=== PATIENT | female | born 1970 ===

== ENCOUNTER 2019-03-06 16:57 | Inpatient (IN) | payer SELFPAY ==
[2019-03-06 17:20] LABS: Base Excess-Venous -12.1 mmol/L (-2.0 to 3.0); Bicarbonate (HCO3v) 13.2 mmol/L (22.0-28.0); CO2 Tension (PvCO2) 29.5 mmHg (40.0-50.0); Calcium, Ionized 1.13 mmol/L (See Comments:); Chloride 104 mmol/L (98-107); Hemoglobin - Calc 18.8 g/dL (12.0-16.0); Potassium 8.1 mmol/L (3.5-5.1); Sodium 127 mmol/L (138-145); T. Carbon Dioxide 14.1 mmol/L (22.0-28.0); vO2 Saturation-calc 84.9 % (60.0-85.0)
[2019-03-06] MEDS ORDERED: Calcium Chloride 1 GM/10 ML Abboject SYRINGE ONE (17:25)
[2019-03-06 17:31] LABS: Hemoglobin 16.9 g/dL (12.0-16.0); Mean Corpuscular HGB CONC 33.3 g/dL (32.0-36.0); Mean Corpuscular Hemoglobin 28.6 pg (27.0-31.0); Mean Corpuscular Volume 86.1 fL (78.0-98.0); Platelet Count 271 thou/uL (130-400); RBC Distribution Width 13.1 % (11.5-14.5); White Blood Cell (WBC) Count 25.4 thou/uL (4.8-10.8)
[2019-03-06] MEDS ORDERED: Insulin Regular 300 UNITS/3 ML VIAL ONE (17:48)
[2019-03-06 17:52] LABS: Band 42 % (5-11); Lymphocytes 2 % (21-51); MDiff Complete? YES; Monocytes 7 % (0-10); Neutrophil 45 % (42-75); Platelet Morphology Comment Appears Adequate; Polychromasia SLIGHT = 2-3 cells (100X) (0-2/hpf); Reactive Lymphocytes 4 % (0-10); Reflex for Review?? YES
--- NOTE | 2019-03-06 17:52 | RAD ---
Exam: Chest one view HISTORY:Dyspnea Comparison: None FINDINGS: Cardiac silhouette: Normal Aorta: Unremarkable Pulmonary vessels: Normal Costophrenic angles: Clear LUNGS: Patchy interstitial and alveolar opacities predominantly lung bases. Pneumothorax: None Osseous abnormalities: None IMPRESSION: Bibasilar interstitial and alveolar opacities. Continued surveillance is recommended.
[2019-03-06 17:54] LABS: Bacteria/HPF None Seen HPF (None Seen); Bilirubin Negative (Negative); Blood, Urine 1+ (Negative); Clarity Clear (Clear); Glucose, Urine (Dipstick) Greater than 1000 mg/dL (Negative); Leukocyte Negative Leu/uL (Negative); Nitrite Negative (Negative); Protein, Urine (Dipstick) 100 mg/dL (Neg-Trace); RBC/HPF 0-3 HPF (0-3); Squamous Epithelial 0-3 HPF (0-3); Urobilinogen Normal mg/dL (Less than 2); WBC/HPF 0-3 HPF (0-3)
[2019-03-06] MEDS ORDERED: Insulin Regular 100 units/100 ml in NS IVPB SCH (18:00)
[2019-03-06 18:01] LABS: ALT (SGPT) 22 U/L (8-55); AST (SGOT) 15 U/L (5-34); Albumin 3.7 g/dL (3.5-5.0); Alkaline Phosphatase 148 U/L (40-110); Anion Gap 28 mmol/L (10-20); BUN (Urea Nitrogen) 35 mg/dL (7.0-18.7); Bilirubin, Total 0.4 mg/dL (0.2-1.2); Calc. Creatinine Clearance 0 mL/min (70-130); Calcium 10.5 mg/dL (7.8-10.44); Carbon Dioxide 11 mmol/L (22-29); Chloride 98 mmol/L (98-107); Estimated GFR-MDRD 39; Globulin 4.5 g/dL (2.4-3.5); Glucose 476 mg/dL (70-105); Lipase 113 U/L (8-78); Potassium 3.5 mmol/L (3.5-5.1); Protein, Total 8.2 g/dL (6.0-8.3); Sodium 133 mmol/L (136-145)
[2019-03-06] MEDS ORDERED: Azithromycin 500 MG VIAL ONE ×2 (18:06→18:07)
[2019-03-06] MEDS ORDERED: Aspirin Chewable 81 MG TAB ONE (18:06)
[2019-03-06] MEDS ORDERED: cefTRIAXone\\ROCEPHIN 2 GM VIAL ONE (18:06)
[2019-03-06 18:22] LABS: CKMB 6.8 ng/mL (0-6.6)
[2019-03-06] MEDS ORDERED: Rocuronium Bromide 50 MG/5 ML VIAL ONE (18:22)
[2019-03-06] MEDS ORDERED: Ondansetron PF 4 MG/2 ML Vial ONE (18:26)
[2019-03-06] MEDS ORDERED: fentaNYL Citrate/PF 2,000 MCG in Sodium Chloride 0.9% 60 ML IV SCH ×2 (18:41→23:45)
[2019-03-06 19:24] LABS: Actual Bicarbonate (HCO3a) 13.3 mEq/L (22-28); Analyzer IN Cardio ER; Base Excess (BEa) -14.8 mEq/L (-2.0 to +3.0); CO2 Tension 39.2 mmHg (35.0-45.0); Calcium, Ionized 1.38 mmol/L (1.12-1.30); Carboxyhemoglobin (COHb) 0.3 gm% (0.0-3.0); Hemoglobin (Hb) 14.8 g/dL (12.0-16.0); O2 Tension (PaO2) 154.5 mmHg (80.0-100.0); Potassium - ABG Lab 2.76 mmol/L (3.70-5.30)
--- NOTE | 2019-03-06 19:29 | RAD ---
CHEST ONE VIEW: 03/06/19 INDICATION: Intubation. COMPARISON: Prior exam dated 03/06/19 at 6:24 p.m. FINDINGS: ET tube tip is seen 3 cm above the level of the kami. Gastric catheter projects below the left jessica diaphragm and to the level of the gastric body. Cardiomegaly persists. Patchy perihilar opacities mor e prominent within the left lower lobe persists. No pleural effusion or pneumothorax is evident. No acute osseous abnormality is evident. IMPRESSION: Stable exam. POS: BH
--- NOTE | 2019-03-06 19:39 | RAD ---
CHEST ONE VIEW: 03/06/19 INDICATION: Intubation. COMPARISON: Prior examination performed at 5:22 p.m. FINDINGS: Patient has been intervally intubated. ET tube tip is seen 1.5 cm above the level of the kami. Alexander macie catheter projects below the left hemidiaphragm beyond the field of view. Patchy air space opacity seen within the right suprahilar region, right lower lobe and left infrahilar region suspicious for possible pneumonia. No pleural effusion or pneumothorax is evident. No acute osseous abnormality is e vident. IMPRESSION: Patchy bilateral air space opacity suspicious for possible pneumonia. POS: BH
[2019-03-06 19:40] LABS: pH, Arterial 7.15 (7.35-7.45)
[2019-03-06] MEDS ORDERED: Aspirin 300 MG Suppository ONE (20:01)
[2019-03-06 20:29] LABS: Anion Gap 18 mmol/L (10-20); BUN (Urea Nitrogen) 30 mg/dL (7.0-18.7); Calc. Creatinine Clearance 0 mL/min (70-130); Calcium 9.4 mg/dL (7.8-10.44); Carbon Dioxide 15 mmol/L (22-29); Chloride 111 mmol/L (98-107); Estimated GFR-MDRD 53; Glucose 289 mg/dL (70-105); Sodium 141 mmol/L (136-145)
[2019-03-06 20:37] LABS: Potassium 2.8 mmol/L (3.5-5.1)
[2019-03-06] MEDS ORDERED: Ondansetron ODT 4 MG TAB PO PRN (20:54)
[2019-03-06] MEDS ORDERED: Ondansetron PF 4 MG/2 ML Vial IVP PRN (20:54)
[2019-03-06 21:38] LABS: Troponin I 0.708 ng/mL (< 0.028)
[2019-03-06] MEDS ORDERED: Dextrose 5 %-0.45 % NaCl 1,000 ML IV PRN (22:04)
[2019-03-06] MEDS ORDERED: Dextrose 5% in Water 1,000 ML IV PRN (22:04)
[2019-03-06] MEDS ORDERED: Sodium Chloride 0.9% 1,000 ML IV PRN ×4 (22:04)
[2019-03-06] MEDS ORDERED: NS 0.9% w/ 20 MEQ KCL 1,000 ML/1,000 ML BAG IV PRN ×2 (22:04)
[2019-03-06] MEDS ORDERED: Dextrose 50% Abboject 50 ML SYRINGE SLOW IVP PRN (22:04)
[2019-03-06] MEDS ORDERED: HUMULIN R 100 UNITS in Sodium Chloride 0.9% 100 ML IVPB SCH (22:15)
[2019-03-06] MEDS ORDERED: ADD ELECTROLYTE REPLACEMENT SET TO PROFILE FS SCH (22:15)
[2019-03-06] MEDS ORDERED: Insulin Regular 300 UNITS/3 ML VIAL IVP SCH (22:15)
[2019-03-06] MEDS: D5 1/2 NS w/20 mEq KCL 1,000 ML IV PRN (22:48)
--- NOTE | 2019-03-06 22:54 | HP ---
PRIMARY CARE PHYSICIAN: None. CHIEF COMPLAINT: Weakness, fatigue times days. HISTORY OF PRESENT ILLNESS: A 48-year-old female who does not routinely see primary care physician and with no chronic medical comorbidities, who presented to urgent care clinic today for her second evaluation in five days for progressive complaints of fevers, cough, shortness of breath, and worsening malaise associated with weakness, and one day of disorientation prompting ER evaluation. Per account of the patient's spouse, son, daughter, and the ER physician, the patient began to complain of right hip pain on Tuesday and fevers complaints and productive cough and went to Urgent Care on , where she was diagnosed with the flu without any flu testing and prescribed oral medications and rescue inhaler and sent home. She continued to feel unwell on Tuesday and Tuesday had an episode of emesis and felt slightly better. On Tuesday, she slept the majority of the day with decreased oral intake and was restless throughout the night. On Tuesday, she had increasing fatigue and weakness and today she could not even get up out of bed and had fallen to the ground with increased shortness of breath, prompting family to take her to the urgent care. She was referred to the ER, where she was noted to be tachypneic. Her serum Accu-Chek was elevated and point of care glucose was over 306 with point of care potassium of 8.1. Serum chemistries suggested normal potassium but with hyperglycemia and anion gap metabolic acidosis, elevated beta hydroxybutyrate levels, normal lactic acid levels, and a serum troponin of 0.632 with urinalysis revealing proteinuria, glycosuria, ketonuria, and granular casts. One-view chest x-ray suggested bibasilar interstitial alveolar opacities. The patient was reported to have an initial oxygen saturation of 98% and with progression of hypoxia and increased labored breathing, she was intubated for airway protection in the emergency room. She received 2 L IV fluid bolus and assess one-third of liter after transiently hypotensive post intubation with no normotensive blood pressure readings. She was given Rocephin 1 g, IV regular insulin bolus and initiated on IV regular insulin drip and rectal aspirin 300 mg. At bedside, the patient is intubated and sedated. Family members corroborated an aforementioned history. They deny any focal neurological deficits noted in patient or any prior similar complaints. They deny any complaints of angina or dysuria or any other recent infections. REVIEW OF SYSTEMS: Unable to obtain as patient is intubated and sedated. PAST MEDICAL HISTORY: None. PAST SURGICAL HISTORY: Cholecystectomy. SOCIAL HISTORY: The patient is , lives at her home with her spouse and family. Denies tobacco or alcohol use. ALLERGIES: NONE DOCUMENTED. HOME MEDICATIONS: None. Recent medications will be reviewed as per admission medication reconciliation. FAMILY HISTORY: Notable for diabetes in family members. PHYSICAL EXAMINATION: VITAL SIGNS: T-max 100.0, pulse 110 to 130, sinus tachycardia, respirations 24 to 28, oxygen saturation reported 82% on room air but documented for 90% to 96%, and blood pressure ranges from 98/46 to 152/103. GENERAL APPEARANCE: This is a middle-aged female, who is intubated and sedated. HEENT: Normocephalic and atraumatic. Pupils are equally round and reactive. ET tube, NG tube noted. NECK: Supple. CARDIOVASCULAR: S1, S2. Tachycardia. No chest wall tenderness. LUNGS: Bilateral equal air entry on anterior auscultation with ET tube noted. No obvious wheezing appreciated. ABDOMEN: Soft, nontender, nondistended. Right upper abdominal scar noted. Normoactive bowel sounds. EXTREMITIES: No edema, cyanosis, or obvious deformities. SKIN: Warm to touch without rash, pallor, or abrasion. GENITOURINARY: Evaluation, indwelling Ching catheter with yellow-colored urine. LABORATORY VALUES: Sodium 133, potassium 3.5 (point of care potassium 8.1), chloride 98, bicarb 11, glucose 476, BUN/creatinine 35/1.43, GFR 39. Calcium 10.5, T-bilirubin 0.4, alkaline phosphatase 148, AST 15, and ALT 22. Lipase 113. Beta hydroxybutyrate 6.82. Troponin I 0.632. ABG: PH 7.15, pCO2 of 39, and PO2 154. Lactic acid 1.8. WBC 25.4, H and H 16.9/50.8, and platelets 271. Chest x-ray one view suggests bibasilar interstitial alveolar opacities. ASSESSMENT: 1. Acute hypoxic respiratory failure secondary to community-acquired pneumonia, possible flu, and diabetic ketoacidosis. The patient required emergent intubation in the ER for hypoxia and labored respirations in the ER. She is currently sedated. ER will consult on-call signal worker helper for ventilator management. Continue antibiotics, empiric Tamiflu, check flu screen for documentation, and continue surveillance chest x-ray monitoring, and we will treat diabetic ketoacidosis. 2. Diabetic ketoacidosis. The patient has no formal diagnosis of diabetes mellitus. Suspect triggered secondary to infection from clinical pneumonia, possible flu. We will need to exclude acute coronary syndrome in the setting of elevated troponin, although supply demand mismatch may be more likely. The patient has been bolused 3 L IV fluid, received IV insulin bolus, and is on IV insulin drip. Continue serial BMP to evaluate for anion gap closure. Check hemoglobin A1c. Monitor electrolyte derangements. 3. Acute metabolic encephalopathy, likely secondary to hypoxia, diabetic ketoacidosis, and dehydration. Difficult to assess as patient is now intubated and sedated. Denies any focal neurological deficits in patient prior to arrival. 4. Community-acquired pneumonia. Continue Rocephin and Zithromax. Start empiric oral Tamiflu and check influenza panel. Product Development Technician consulted. 5. Possible flu. The patient was given recent diagnosis at Urgent Care this past Tuesday without any formal testing reported. She is on some tablets which family cannot specify. We will start on oral Tamiflu, continue droplet precautions, and obtain influenza panel. 6. Elevated troponin of unspecified etiology. Rule out acute coronary syndrome. Trend serial cardiac biomarkers. May be secondary to supply demand mismatch from severe hypoxia and pneumonia. 7. Anion gap metabolic acidosis likely secondary to diabetic ketoacidosis. Lactic acid unremarkable. Continue volume expansion with IV fluid resuscitation and monitor serial BMP. 8. Dehydration. Continue IV fluid resuscitation. Likely secondary to diabetic ketoacidosis. 9. Hypercalcemia likely secondary to dehydration. Continue fluid resuscitation. 10. Gastrointestinal prophylaxis: Start Pepcid. 11. Deep vein thrombosis prophylaxis: Lovenox. 12. Check a.m. labs. 13. Disposition: Inpatient ICU admission. Job ID: [id number]
[2019-03-06] MEDS ORDERED: Propofol 1,000 MG/100 ML VIAL IV ONE (23:01)
[2019-03-06] MEDS ORDERED: Enoxaparin Sodium 60 MG/0.6 ML SYRINGE SC SCH (23:15)
[2019-03-06 23:31] LABS: Anion Gap 16 mmol/L (10-20); BUN (Urea Nitrogen) 26 mg/dL (7.0-18.7); Calc. Creatinine Clearance 67 mL/min (70-130); Calcium 9.2 mg/dL (7.8-10.44); Carbon Dioxide 15 mmol/L (22-29); Chloride 112 mmol/L (98-107); Estimated GFR-MDRD 62; Glucose 266 mg/dL (70-105); Sodium 140 mmol/L (136-145)
[2019-03-06 23:32] LABS: Potassium 2.7 mmol/L (3.5-5.1)
[2019-03-06] MEDS ORDERED: DISCONTINUE PREVIOUS NARCOTIC PAIN MEDICATIONS AND BENZODIAZEPINES FS SCH (23:45)
[2019-03-06] MEDS ORDERED: Lorazepam 2 MG/ML VIAL SLOW IVP PRN (23:45)
[2019-03-06] MEDS ORDERED: Propofol BOLUS 1,000 MG/100 ML VIAL IV PRN (23:45)
[2019-03-06] MEDS ORDERED: Fentanyl BOLUS 250 ML IVPB PRN (23:45)
[2019-03-06] MEDS ORDERED: Morphine 2 MG/ML SYRINGE SLOW IVP PRN (23:45)
[2019-03-06] MEDS ORDERED: Potassium Phosphate 15 MMOL in Sodium Chloride 0.9% 250 ML 250 ML IV PRN (23:47)
[2019-03-06] MEDS ORDERED: Magnesium Oxide 400 MG TAB PO PRN ×2 (23:47)
[2019-03-06] MEDS ORDERED: Potassium Chloride 40 MEQ in Premix Bag 1 BAG IVPB PRN (23:47)
[2019-03-06] MEDS ORDERED: Magnesium 2 GM/50 ML 2 GM in Premix Bag 1 BAG IVPB PRN (23:47)
[2019-03-06] MEDS ORDERED: Potassium Phosphate 9 MMOL in Sodium Chloride 0.9% 100 ML IVPB PRN (23:47)
[2019-03-06] MEDS ORDERED: Potassium Chloride 20 MEQ TAB PO PRN (23:47)
[2019-03-06] MEDS ORDERED: CCU ELECTROLYTE REPLACEMENT PROTOCOL FS PRN (23:47)
[2019-03-06] MEDS ORDERED: Potassium Phosphate 12 MMOL in Sodium Chloride 0.9% 250 ML 250 ML IV PRN (23:47)
[2019-03-06] MEDS ORDERED: PHOS-NAK 1 PKT PACK PO PRN ×2 (23:47)
[2019-03-06] MEDS: Propofol 1,000 MG/100 ML VIAL IV PRN (23:51)
[2019-03-07] MEDS: Potassium Chloride 40 MEQ in Sodium Chloride 0.9% 250 ML 250 ML IVPB PRN (00:47)
[2019-03-07 00:57] LABS: Critical Call Chem Troponin I RESULT DECREASING; Troponin I 0.533 ng/mL (< 0.028)
[2019-03-07] MEDS: D5 1/2 NS w/20 mEq KCL 1,000 ML IV PRN (03:49)
[2019-03-07 03:53] LABS: Anion Gap 13 mmol/L (10-20); BUN (Urea Nitrogen) 19 mg/dL (7.0-18.7); Calc. Creatinine Clearance 78 mL/min (70-130); Calcium 8.9 mg/dL (7.8-10.44); Carbon Dioxide 17 mmol/L (22-29); Chloride 117 mmol/L (98-107); Estimated GFR-MDRD 75; Glucose 251 mg/dL (70-105); Potassium 4.6 mmol/L (3.5-5.1); Sodium 142 mmol/L (136-145)
[2019-03-07] MEDS ORDERED: Lorazepam 2 MG/ML VIAL SLOW IVP PRN (04:22)
[2019-03-07] MEDS: Acetaminophen 325 MG TAB PO PRN ×2 (04:33→18:30)
[2019-03-07 06:11] LABS: Hemoglobin 13.1 g/dL (12.0-16.0); Mean Corpuscular HGB CONC 34.4 g/dL (32.0-36.0); Mean Corpuscular Hemoglobin 29.1 pg (27.0-31.0); Mean Corpuscular Volume 84.6 fL (78.0-98.0); Mean Platelet Volume 8.9 fL (7.4-10.4); Platelet Count 209 thou/uL (130-400); RBC Distribution Width 12.8 % (11.5-14.5); White Blood Cell (WBC) Count 12.6 thou/uL (4.8-10.8)
[2019-03-07] MEDS ORDERED: Sodium Chloride 0.9% 250 ML IV SCH (06:15)
[2019-03-07 06:47] LABS: Band 26 % (5-11); Lymphocytes 7 % (21-51); MDiff Complete? YES; Metamyelocyte 1 % (0-0); Monocytes 2 % (0-10); Myelocyte 3 % (0-0); Neutrophil 61 % (42-75); Platelet Morphology Comment Appears Adequate; RBC Morphology Normal
[2019-03-07 06:56] LABS: Lactic Acid 4.9 mmol/L (0.5-2.2)
[2019-03-07] MEDS ORDERED: D5 1/2 NS w/20 mEq KCL 1,000 ML IV PRN (07:03)
[2019-03-07 07:41] LABS: Actual Bicarbonate (HCO3a) 18.3 mEq/L (22-28); Base Excess (BEa) -5.5 mEq/L (-2.0 to +3.0); CO2 Tension 30.6 mmHg (35.0-45.0); Calcium, Ionized 1.23 mmol/L (1.12-1.30); Hemoglobin (Hb) 12.3 g/dL (12.0-16.0); O2 Tension (PaO2) 81.7 mmHg (80.0-100.0); Potassium - ABG Lab 3.06 mmol/L (3.70-5.30); pH, Arterial 7.39 (7.35-7.45)
[2019-03-07 07:42] LABS: Puncture Site RRA
[2019-03-07] MEDS ORDERED: Enoxaparin Sodium 40 MG/0.4 ML SYRINGE SC SCH (09:00)
[2019-03-07] MEDS ORDERED: FLU VACC QS2019-20(6MOS UP)/PF 60 MCG/0.5 ML SYRINGE IM ONE (09:00)
[2019-03-07 09:15] LABS: Magnesium 1.6 mg/dL (1.6-2.6)
[2019-03-07 09:19] LABS: Phosphorus Less than 1.0 mg/dL (2.3-4.7)
[2019-03-07] MEDS ORDERED: Pancrelipase DR 12000 1 CAP PER TUBE PRN (09:27)
[2019-03-07] MEDS ORDERED: Sodium Bicarbonate Tab 325 MG TAB PER TUBE PRN (09:28)
[2019-03-07] MEDS: Oseltamivir 75 MG CAP PO SCH ×2 (09:29→20:06)
[2019-03-07] MEDS: Enoxaparin Sodium 60 MG/0.6 ML SYRINGE SC SCH ×2 (09:33→20:20)
[2019-03-07] MEDS: Linezolid 600 MG in Premix Bag 1 BAG IVPB SCH ×2 (09:38→20:19)
--- NOTE | 2019-03-07 09:44 | CON ---
DATE OF CONSULTATION: HISTORY OF PRESENT ILLNESS: Sonja Barnard is a 48-year-old female whose history is obtained after talking to her daughter who was at the bedside. 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 They are from [facility]. They have been here for many years. They left a several day history of flu-like symptoms last week, cough, congestion, sore throat, went to Urgent Care. Flu shot was done, apparently they have given some Tamiflu. She then got worse over the last 24-48 hours of nausea, vomiting, confusion, shortness of breath, and cough. Nurses tell me she got bloody secretions. She came to the ER, seen by the ER physician as she was in severe distress blood pressure 98/46 in the ER, pulse 138, temperature 98, sats 90% on room air. She was in severe distress, was intubated. Tachypneic, tachycardic. X-ray shows a right-sided upper lung infiltrate. PAST MEDICAL HISTORY: Apparently, no history of diabetes or hypertension. PREVIOUS SURGERIES: Gallbladder many years ago. ALLERGIES: NONE. SOCIAL HISTORY: No alcohol or tobacco abuse. Daughter says she is pretty healthy. In the ER, she received aspirin, azithromycin, fentanyl, insulin 6 units/h, rocuronium, insulin 10 units. Fluid bolus. She is now in the ICU, intubated in the vent, sedated. PHYSICAL EXAMINATION: VITAL SIGNS: Blood pressure is low 90/53, pulse 120, respiratory rate 20, maximum temperature has been 101.4. CHEST: Extensive rhonchi and crackles. CARDIAC: Sinus tach. ABDOMEN: Soft without any masses. White count is 12,000, H and H are 13 and 38, platelet count is 209. PO2 is 81, pCO2 30, pH 7.39. Her lactic acid is 4.9, glucose 137. She is on 2 units of insulin R. Influenza A and B negative in the hospital. Chest x-ray shows bilateral airspace patchy, possibly pneumonia. Urine output has been adequate. Otherwise, as noted she is unresponsive. Chest is extensive rhonchi. Cardiac she has no edema. ASSESSMENT: 1. Uncontrolled diabetes, sepsis, new onset. 2. Bilateral aspiration pneumonia versus post flu pneumonia, rule out Staph shock. PLAN: 500 mL of Plasmanate has been given, insulin continue, we will start Lantus low-dose, aggressive Accu-Chek q.4, broad-spectrum antibiotics, sputum is being cultured, neb treatment is being ordered. Continue vent support for the time being, low-dose nutrition initiated. She is on DVT prophylaxis. This is a 45-minute critical time. Job ID: [id number]
[2019-03-07] MEDS: Insulin Glargine 10 UNITS in Pre-Filled Syringe 1 EACH SC SCH (09:59)
--- NOTE | 2019-03-07 10:41 | PDOC.HOSPP ---
- Subjective Encounter Date: 03/07/19 Encounter Time: 10:40 Subjective: The patient is intubated. Currentel yoff sedation but on fentanyl 25. Not arousable to noxious stimuli She was given 1.5L overnight, additional 1L bolus + 500 L bolus this morning. She was given [address] Leon as well and fluids increased to 150/hour. Per nurse, MAP was fluctuating to < 55 on multiple occasions, asked for prn order of levofed Per daughter patient was told she had the flu. She had shortness of breath and productive cough with phlegm. Tuesday she improved, Tuesday she got worst. Tuesday she was unable to get out of bed, talk and was confused. No previous history of diabetes in the past per daughter. Patient has no PCP. Unknown home meds - Objective Vital Signs & Weight: Vital Signs (12 hours) Temp Pulse Resp BP 03/07/19 10:21 95 93/47 L 03/07/19 10:00 24 H 03/07/19 08:00 25 H 03/07/19 07:16 107 H 79/46 L 03/07/19 07:00 99.4 F 03/07/19 06:00 101.4 F H 33 H 03/07/19 05:00 100.8 F H 03/07/19 04:00 100.6 F H 29 H 03/07/19 03:00 99.6 F 03/07/19 02:25 134 H 130/83 03/07/19 02:00 31 H 03/07/19 00:43 118 H 101/76 03/07/19 00:00 98.8 F 24 H 03/06/19 23:40 24 H Weight Admit Weight 131 lb 6.4 oz Weight 132 lb 0.91 oz Most Recent Monitor Data Heart Rate from ECG 94 NIBP 93/57 NIBP BP-Mean 69 Respiration from ECG 24 SpO2 98 I&O: 03/06/19 03/07/19 03/08/19 06:59 06:59 06:59 Intake Total 2211.7 11.5 Output Total 1015 150 Balance 1196.7 -138.5 Result Diagrams: 03/07/19 05:51 03/07/19 03:17 Additional Labs: Accuchecks 03/07/19 03/07/19 03/07/19 08:15 07:35 06:20 POC Glucose 137 H 140 H 174 H 03/07/19 03/07/19 03/07/19 05:13 04:23 03:21 POC Glucose 244 H 249 H 229 H 03/07/19 03/07/19 03/07/19 02:19 01:23 00:20 POC Glucose 251 H 290 H 295 H 03/06/19 03/06/19 03/06/19 23:15 22:25 20:28 POC Glucose 238 H 212 H 266 H 03/06/19 03/06/19 18:25 17:06 POC Glucose 306 H 426 H Hospitalist ROS - Medication Medications: Active Medications Generic Name Dose Route Start Last Admin Trade Name Freq PRN Reason Stop Dose Admin Acetaminophen 650 mg 03/06/19 20:54 03/07/19 04:33 Tylenol PO 650 mg Q4H PRN Administration Headache/Fever/Mild Pain (1-3) Albumin Human 25 gm 03/07/19 09:30 03/07/19 09:21 Albumin 5% IVPB 03/07/19 11:00 25 gm NOW ANAND Administration Enoxaparin Sodium 60 mg 03/07/19 09:00 03/07/19 09:33 Lovenox SC 60 mg 0900,2100 ANAND Administration Potassium Chloride 40 meq/ 270 mls @ 135 mls/hr 03/06/19 23:47 03/07/19 00:47 Sodium Chloride IVPB 270 mls ASDIR PRN Administration FOR SERUM K+ 2.5 - 3.5 Linezolid 600 mg/ Device 300 mls @ 150 mls/hr 03/07/19 09:00 03/07/19 09:38 IVPB 300 mls Q12HR ANAND Administration Insulin Glargine 10 units/ 0.1 mls @ 0 mls/hr 03/07/19 09:00 03/07/19 09:59 Miscellaneous Medication SC 0.1 mls QAM ANAND Administration Oseltamivir Phosphate 75 mg 03/07/19 09:00 03/07/19 09:29 Tamiflu PO 03/11/19 21:01 Not Given BID ANAND Propofol 1,000 mg 03/06/19 23:45 03/06/19 23:51 Diprivan IV 04/05/19 23:45 1,000 mg INF PRN Administration TO ACHIEVE GOAL RASS Protocol - Exam General Appearance: NAD General - other findings: intubated, not responsive to noxious stimuli Eye: PERRL, anicteric sclera ENT: normocephalic atraumatic, no oropharyngeal lesions Neck: no JVD Heart: RRR, no murmur, no gallops, no rubs Respiratory: rales Respiratory - other findings: bilateral Gastrointestinal: soft, non-tender, non-distended, normal bowel sounds Extremities: no cyanosis, no clubbing, no edema Hosp A/P - Plan Chest X ray 03/06: bibasilar opacities suspicious for pneumonia This is 48 year old female who presented with shortness of breath, cough, fever , confusion, unresponsiveness, admitted for DKA, s/p intubation #Acute hypoxic respiratory failure secondary to pneumonia s/p intubation #Severe sepsis secondary to pneumonia #Lactic acidosis - temp 101, heart rate 90, lactate 4.9, s/p 2L fluid boluses, with fluctuating MAP. On NS 150/hour, start levofed if MAP < 65 - WBC improving to 12, continue IV ceftriaxone and azithromycin - will repeat lactate - blood cultures negative, influenza negative. Check sputum culture #DKA - improving, off insulin drip - continue lantus 10 SC qam - monitor blood sugars q6 hours Diet: NPO DVT prophylaxis: lovenox Code status: full code
[2019-03-07] MEDS ORDERED: Sodium Phosphate 30 MMOL in Sodium Chloride 0.9% 250 ML 250 ML IVPB SCH (11:00)
[2019-03-07] MEDS ORDERED: Norepinephrine 8 MG/0.9% NS 250 ML IVPB SCH ×2 (11:00→11:03)
[2019-03-07 11:38] LABS: Lactic Acid 1.7 mmol/L (0.5-2.2)
[2019-03-07] MEDS: Sodium Chloride 0.9% 1,000 ML IV PRN ×2 (11:48→18:31)
[2019-03-07] MEDS: HumaLOG 300 UNITS/3 ML VIAL SC PRN ×3 (11:48→20:19)
[2019-03-07] MEDS: Propofol 1,000 MG/100 ML VIAL IV PRN (12:13)
[2019-03-07] MEDS ORDERED: cefTRIAXone\\ROCEPHIN 1 GM in Sodium Chloride 0.9% 100 ML IVPB SCH (17:00)
[2019-03-07] MEDS: Azithromycin 500 MG in Sodium Chloride 0.9% 250 ML 250 ML IVPB SCH (17:48)
[2019-03-07] MEDS: Famotidine/PF 20 mg/2ml Vial SLOW IVP SCH (20:20)
[2019-03-07] MEDS: Acetaminophen 650 MG/20.3 ML UDCUP PO PRN (21:48)
[2019-03-07] MEDS: Meropenem 2 GM in Sodium Chloride 0.9% 100 ML IVPB SCH (21:48)
[2019-03-08] MEDS: HumaLOG 300 UNITS/3 ML VIAL SC PRN ×5 (00:01→23:31)
[2019-03-08] MEDS: Acetaminophen 650 MG/20.3 ML UDCUP PO PRN ×2 (02:22→16:26)
[2019-03-08 05:22] LABS: Anion Gap 12 mmol/L (10-20); BUN (Urea Nitrogen) 6 mg/dL (7.0-18.7); Calc. Creatinine Clearance 112 mL/min (70-130); Calcium 7.4 mg/dL (7.8-10.44); Carbon Dioxide 21 mmol/L (22-29); Chloride 107 mmol/L (98-107); Estimated GFR-MDRD Greater than 90; Glucose 255 mg/dL (70-105); Potassium 1.8 mmol/L (3.5-5.1); Sodium 138 mmol/L (136-145)
[2019-03-08] MEDS: Meropenem 2 GM in Sodium Chloride 0.9% 100 ML IVPB SCH ×3 (05:37→21:29)
[2019-03-08 05:50] LABS: Band 47 % (5-11); Eosinophils 1 % (0-10); Hemoglobin 11.3 g/dL (12.0-16.0); Lymphocytes 7 % (21-51); MDiff Complete? YES; Mean Corpuscular HGB CONC 32.6 g/dL (32.0-36.0); Mean Corpuscular Hemoglobin 27.8 pg (27.0-31.0); Mean Corpuscular Volume 85.3 fL (78.0-98.0); Metamyelocyte 1 % (0-0); Monocytes 1 % (0-10); Neutrophil 43 % (42-75); Platelet Count 217 thou/uL (130-400); RBC Distribution Width 12.9 % (11.5-14.5); Red Blood Cell (RBC) Count 4.08 mill/uL (4.20-5.40); White Blood Cell (WBC) Count 15.4 thou/uL (4.8-10.8)
[2019-03-08] MEDS: Potassium Chloride 20 MEQ TAB PO SCH ×2 (06:00→09:34)
[2019-03-08] MEDS: Potassium Chloride 20 MEQ in Premix Bag 1 BAG IVPB SCH ×2 (06:12→10:45)
[2019-03-08 06:49] LABS: Actual Bicarbonate (HCO3a) 21.7 mEq/L (22-28); Base Excess (BEa) -0.1 mEq/L (-2.0 to +3.0); CO2 Tension 27.3 mmHg (35.0-45.0); Calcium, Ionized 1.08 mmol/L (1.12-1.30); Hemoglobin (Hb) 11.8 g/dL (12.0-16.0); O2 Tension (PaO2) 118.5 mmHg (80.0-100.0); Potassium - ABG Lab 1.96 mmol/L (3.70-5.30); pH, Arterial 7.52 (7.35-7.45)
[2019-03-08 06:51] LABS: ALV-art Gradient 132.575 (0-20); Puncture Site RRA
--- NOTE | 2019-03-08 08:01 | RAD ---
PORTABLE CHEST: HISTORY: On ventilator with CCU followup. COMPARISON: 03/06/2019. FINDINGS/IMPRESSION: ET tube and NG Tube remain in place. Artifact overlies the right mid lung and degrades evaluation. There is hazy infiltrate or atelectasis in the left lung base which appears unchanged from 03/06/2019. No acute interval change. POS: C
[2019-03-08] MEDS: Famotidine/PF 20 mg/2ml Vial SLOW IVP SCH ×2 (09:31→20:20)
[2019-03-08] MEDS: Enoxaparin Sodium 60 MG/0.6 ML SYRINGE SC SCH ×2 (09:31→20:20)
[2019-03-08] MEDS: Linezolid 600 MG in Premix Bag 1 BAG IVPB SCH ×2 (09:32→20:21)
[2019-03-08] MEDS: Insulin Glargine 10 UNITS in Pre-Filled Syringe 1 EACH SC SCH (09:32)
[2019-03-08] MEDS: NS 0.9% w/ 40 MEQ KCL 1,000 ML IV SCH ×2 (09:34→21:52)
[2019-03-08 10:27] LABS: Potassium 2.1 mmol/L (3.5-5.1)
--- NOTE | 2019-03-08 10:28 | PRG ---
DATE OF SERVICE: 03/08/2019 SUBJECTIVE: This morning, she is sedated, but responsive. OBJECTIVE: VITAL SIGNS: Temperature 97 saturations 100%, respirations 22. CHEST: Bilateral rhonchi and crackles. CARDIAC: Normal S1 and S2. No gallops. ABDOMEN: No masses. LABORATORY DATA: White count 15,000, hemoglobin and hematocrit are 11 and 34, platelet count 217, 43 segs, 47 bands. PO2 is 118, pCO2 27, pH 7.52. Glucoses 214, potassium 1.8, bicarb is 21. X-ray shows bilateral pneumonia. Sputum shows maybe Staph. IMPRESSION: 1. Bilateral bronchopneumonia, possibly Staph. Recent flu, though her influenza titer was negative. 2. Diabetes. PLAN: Continue hydration, hopefully wean and extubate. Continue low-dose insulin. Continue Acc-Cheks. Do not stop antibiotics, Zyvox and Zithromax. Primary care switched over to meropenem and it is unclear why this was done. We will follow. One-half hour of critical time. Job ID: [id number]
[2019-03-08 16:47] LABS: Magnesium 1.8 mg/dL (1.6-2.6)
[2019-03-08 16:51] LABS: Potassium 2.6 mmol/L (3.5-5.1)
[2019-03-08] MEDS: Potassium Chloride 40 MEQ in Sodium Chloride 0.9% 250 ML 250 ML IVPB PRN (17:20)
[2019-03-08] MEDS: Azithromycin 500 MG in Sodium Chloride 0.9% 250 ML 250 ML IVPB SCH (17:29)
--- NOTE | 2019-03-08 18:05 | PDOC.HOSPP ---
- Subjective Encounter Date: 03/08/19 Encounter Time: 11:00 Subjective: The patient is extubated today. She reports some mild shortness of breath, no chest pain. Per she is a little confused. No abdominal pain, nausea Patient spiked fever overnight. Ceftriaxone was switched to meropenem. Linezolid and azithromycin continued - Objective Vital Signs & Weight: Vital Signs (12 hours) Temp Pulse Pulse Resp BP Pulse Ox Pulse Ox 03/08/19 16:00 100.1 F H 03/08/19 13:03 95 24 H 99 03/08/19 12:00 99.0 F 100 03/08/19 11:13 94 122/66 99 03/08/19 09:45 94 19 100 03/08/19 08:00 98.8 F 20 100 03/08/19 06:51 102 H Weight Admit Weight 131 lb 6.4 oz Weight 136 lb 10.986 oz Most Recent Monitor Data Heart Rate from ECG 103 NIBP 116/56 NIBP BP-Mean 76 Respiration from ECG 25 SpO2 99 I&O: 03/07/19 03/08/19 03/09/19 06:59 06:59 06:59 Intake Total 2211.7 6750.3 2516.6 Output Total 1015 4050 2115 Balance 1196.7 2700.3 401.6 Result Diagrams: 03/08/19 04:05 03/08/19 16:20 Additional Labs: Accuchecks 03/08/19 03/08/19 03/08/19 16:23 12:19 08:08 POC Glucose 108 206 H 214 H 03/08/19 03/08/19 03/07/19 04:09 00:01 20:21 POC Glucose 252 H 234 H 197 H Hospitalist ROS - Review of Systems Constitutional: denies: fever, chills Respiratory: reports: shortness of breath. denies: cough, dry - Medication Medications: Active Medications Generic Name Dose Route Start Last Admin Trade Name Freq PRN Reason Stop Dose Admin Acetaminophen 650 mg 03/07/19 19:01 03/08/19 16:26 Tylenol Elixir PO 650 mg Q4H PRN Administration Headache/Fever/Mild Pain (1-3) Albuterol/Ipratropium 3 ml 03/07/19 13:00 03/08/19 13:03 Duoneb NEB 3 ml [id number] ANAND Administration Enoxaparin Sodium 60 mg 03/07/19 09:00 03/08/19 09:31 Lovenox SC 60 mg 0900,2100 ANAND Administration Famotidine 20 mg 03/07/19 21:00 03/08/19 09:31 Pepcid SLOW IVP 20 mg BID ANAND Administration Azithromycin 500 mg/ Sodium 250 mls @ 250 mls/hr 03/07/19 18:00 03/08/19 17: 29 Chloride IVPB 250 mls 1800 ANAND Administration Potassium Chloride 40 meq/ 270 mls @ 135 mls/hr 03/06/19 23:47 03/08/19 17:20 Sodium Chloride IVPB 270 mls ASDIR PRN Administration FOR SERUM K+ 2.5 - 3.5 Magnesium Sulfate 1 gm/ Sodium 102 mls @ 102 mls/hr 03/06/19 23:47 03/08/19 17:18 Chloride IV 102 mls PRN PRN Administration MAG LEVEL 1.4 - 2.0 Magnesium Sulfate 2 gm/ Device 50 mls @ 50 mls/hr 03/06/19 23:47 03/08/19 12: 24 IVPB 50 mls ASDIR PRN Administration MAGNESIUM < 1.4 Linezolid 600 mg/ Device 300 mls @ 150 mls/hr 03/07/19 09:00 03/08/19 09:32 IVPB 300 mls Q12HR ANAND Administration Insulin Glargine 10 units/ 0.1 mls @ 0 mls/hr 03/07/19 09:00 03/08/19 09:32 Miscellaneous Medication SC 0.1 mls QAM ANAND Administration Meropenem 2 gm/ Sodium 100 mls @ 100 mls/hr 03/07/19 22:00 03/08/19 14:05 Chloride IVPB 100 mls Q8HR ANAND Administration Potassium Chloride/Sodium Chloride 1,000 mls @ 100 mls/hr 03/08/19 09:00 09:34 Ns 0.9% W/ 40 Meq Kcl IV 1,000 mls .Q10H ANAND Administration Insulin Human Lispro 0 units 03/07/19 09:26 03/08/19 12:24 Humalog SC 6 units .AGGRESSIVE SLIDING PRN Administration AGGRESSIVE SLIDING SCALE Protocol Lorazepam 2 mg 03/06/19 23:45 03/07/19 14:03 Ativan SLOW IVP 04/05/19 23:45 2 mg Q1H PRN Administration Breakthrough agitation Propofol 1,000 mg 03/06/19 23:45 03/07/19 12:13 Diprivan IV 04/05/19 23:45 1,000 mg INF PRN Administration TO ACHIEVE GOAL RASS Protocol - Exam General Appearance: NAD, awake alert Eye: PERRL, anicteric sclera ENT: normocephalic atraumatic, no oropharyngeal lesions Neck: supple, symmetric, no JVD, no thyromegaly Heart: RRR, no murmur, no gallops, no rubs Respiratory - other findings: mild crackles at bases Gastrointestinal: soft, non-tender, non-distended Extremities: no cyanosis, no clubbing, no edema Hosp A/P - Plan Chest X ray 03/06: bibasilar opacities suspicious for pneumonia This is 48 year old female who presented with shortness of breath, cough, fever , confusion, unresponsiveness, admitted for DKA, s/p intubation #Acute hypoxic respiratory failure secondary to pneumonia s/p intubation #Severe sepsis secondary to pneumonia #Lactic acidosis - temp 101, heart rate 90, lactate 4.9, s/p 2L fluid boluses, with fluctuating MAP. Required levofed - blood culture negative, respiratory culture growing staph aureus. Flu negative - on IV linezolid, meropenem and azithromycin which we will continue for now - lactic acidosis resolved #DKA - off the drip - on full liquid diet - on lantus 10 units SC qam #Hypokalemia - potassium 2.6. - continue electrolyte replacement. Repeat BMP in evening #Anemia - hemoglobin 11 - check B12/folate in am Diet: NPO DVT prophylaxis: lovenox Code status: full code
[2019-03-08 23:50] LABS: Potassium 3.1 mmol/L (3.5-5.1)
[2019-03-09] MEDS: Potassium Chloride 40 MEQ in Sodium Chloride 0.9% 250 ML 250 ML IVPB PRN (02:07)
[2019-03-09 04:39] LABS: Anion Gap 10 mmol/L (10-20); BUN (Urea Nitrogen) 4 mg/dL (7.0-18.7); Calc. Creatinine Clearance 134 mL/min (70-130); Calcium 7.6 mg/dL (7.8-10.44); Carbon Dioxide 29 mmol/L (22-29); Chloride 107 mmol/L (98-107); Estimated GFR-MDRD Greater than 90; Glucose 113 mg/dL (70-105); Potassium 3.5 mmol/L (3.5-5.1); Sodium 142 mmol/L (136-145)
[2019-03-09 04:55] LABS: Band 19 % (5-11); Hemoglobin 11.5 g/dL (12.0-16.0); Hypochromia SLIGHT = 6-15 cells (100X) (0-5/hpf); Lymphocytes 3 % (21-51); MDiff Complete? YES; Mean Corpuscular HGB CONC 33.8 g/dL (32.0-36.0); Mean Corpuscular Hemoglobin 28.6 pg (27.0-31.0); Mean Corpuscular Volume 84.7 fL (78.0-98.0); Mean Platelet Volume 9.2 fL (7.4-10.4); Monocytes 1 % (0-10); Neutrophil 77 % (42-75); Nucleated RBC 2 % (0); Platelet Count 273 thou/uL (130-400); Platelet Morphology Comment Appears Adequate; White Blood Cell (WBC) Count 24.3 thou/uL (4.8-10.8)
[2019-03-09] MEDS: Meropenem 2 GM in Sodium Chloride 0.9% 100 ML IVPB SCH (06:10)
[2019-03-09 08:08] LABS: Phosphorus Less than 1.0 mg/dL (2.3-4.7)
--- NOTE | 2019-03-09 08:16 | RAD ---
XR Chest 1 View Portable History: Ventilated patient Comparison: Radiograph prior day Findings: Patient has been expected in the enteric tube has been removed. Airspace opacities are rela tively similar. No pneumothorax. Cardiac silhouette and mediastinal contours are similar. Impression: Interval extubation and removal of the enteric tube without complication.
--- NOTE | 2019-03-09 08:53 | PRG ---
DATE OF SERVICE: 03/09/2019 SUBJECTIVE: This morning, she is awake, alert, responsive, and weak. X-ray shows a dense right upper lung pneumonia and small bilateral infiltrates. Sputum is growing Staph. Awaiting final identification. I's and O's have been good. Respirations are still elevated at 21. OBJECTIVE: VITAL SIGNS: Saturations are 99% on room air, blood pressure _22\76, maximum temperature 99.2. CHEST: Bilateral rhonchi and crackles. CARDIAC: Normal S1 and S2. No gallops. ABDOMEN: No masses. LABORATORY DATA: Echocardiogram done shows EF is 55% to 60% normal. IMPRESSION: 1. Staph pneumonia, status post viral syndrome. 2. Diabetes. 3. Electrolyte imbalance. 4. Continue aggressive PT, supportive care. Low-dose insulin. Continue observation in the ICU for the 24 hours. One-half hour of critical time. Job ID: [id number] [id number]
[2019-03-09] MEDS: NS 0.9% w/ 40 MEQ KCL 1,000 ML IV SCH ×2 (09:08→09:09)
[2019-03-09] MEDS: Cefepime 2 GM in Sodium Chloride 0.9% 100 ML IVPB SCH ×2 (09:23→21:41)
[2019-03-09] MEDS: Famotidine 20 MG TAB PER TUBE SCH ×2 (09:24→21:32)
[2019-03-09] MEDS: Enoxaparin Sodium 60 MG/0.6 ML SYRINGE SC SCH ×2 (09:24→21:34)
[2019-03-09] MEDS: Linezolid 600 MG in Premix Bag 1 BAG IVPB SCH ×2 (09:24→21:34)
[2019-03-09] MEDS: Insulin Glargine 10 UNITS in Pre-Filled Syringe 1 EACH SC SCH (09:24)
[2019-03-09] MEDS ORDERED: K-Phos Neutral 250 MG TAB PO SCH (10:30)
[2019-03-09] MEDS: HumaLOG 300 UNITS/3 ML VIAL SC PRN (12:30)
--- NOTE | 2019-03-09 16:32 | PDOC.HOSPP ---
- Subjective Encounter Date: 03/09/19 Encounter Time: 16:30 Subjective: The patient is doing better. No significant cough. Shortness of breath has improved. The patient doesn't talk much, this is normal per family. She is more awake today, sitting in the chair - Objective Vital Signs & Weight: Vital Signs (12 hours) Temp Pulse Pulse Pulse Resp BP BP 03/09/19 14:48 96 93 158/100 H 133/71 03/09/19 13:09 95 16 03/09/19 12:00 99.4 F 03/09/19 08:00 99.4 F 03/09/19 06:57 92 21 H Pulse Ox Pulse Ox Pulse Ox 03/09/19 14:48 100 97 03/09/19 13:09 100 03/09/19 12:00 03/09/19 08:00 96 03/09/19 06:57 99 Weight Admit Weight 131 lb 6.4 oz Weight 136 lb 3.931 oz Most Recent Monitor Data Heart Rate from ECG 93 NIBP 157/101 NIBP BP-Mean 119 Respiration from ECG 15 SpO2 100 I&O: 03/08/19 03/09/19 03/10/19 06:59 06:59 06:59 Intake Total 6750.3 4765.6 517 Output Total 4050 4005 935 Balance 2700.3 760.6 -418 Result Diagrams: 03/09/19 03:30 03/09/19 03:30 Additional Labs: Accuchecks 03/09/19 03/09/19 03/09/19 16:19 12:09 08:27 POC Glucose 120 H 168 H 109 03/09/19 03/08/19 03/08/19 03:49 23:30 19:33 POC Glucose 120 H 163 H 130 H Hospitalist ROS - Review of Systems Constitutional: denies: fever, chills - Medication Medications: Active Medications Generic Name Dose Route Start Last Admin Trade Name Freq PRN Reason Stop Dose Admin Acetaminophen 650 mg 03/07/19 19:01 03/08/19 16:26 Tylenol Elixir PO 650 mg Q4H PRN Administration Headache/Fever/Mild Pain (1-3) Albuterol/Ipratropium 3 ml 03/07/19 13:00 03/09/19 13:09 Duoneb NEB 3 ml [id number] ANAND Administration Enoxaparin Sodium 60 mg 03/07/19 09:00 03/09/19 09:24 Lovenox SC 60 mg 0900,2100 ANAND Administration Famotidine 20 mg 03/09/19 09:00 03/09/19 09:24 Pepcid PER TUBE 20 mg BID ANAND Administration Potassium Chloride 40 meq/ 270 mls @ 135 mls/hr 03/06/19 23:47 03/09/19 02:07 Sodium Chloride IVPB 270 mls ASDIR PRN Administration FOR SERUM K+ 2.5 - 3.5 Magnesium Sulfate 1 gm/ Sodium 102 mls @ 102 mls/hr 03/06/19 23:47 03/09/19 09:09 Chloride IV 102 mls PRN PRN Administration MAG LEVEL 1.4 - 2.0 Magnesium Sulfate 2 gm/ Device 50 mls @ 50 mls/hr 03/06/19 23:47 03/08/19 12: 24 IVPB 50 mls ASDIR PRN Administration MAGNESIUM < 1.4 Linezolid 600 mg/ Device 300 mls @ 150 mls/hr 03/07/19 09:00 03/09/19 09:24 IVPB 300 mls Q12HR ANAND Administration Insulin Glargine 10 units/ 0.1 mls @ 0 mls/hr 03/07/19 09:00 03/09/19 09:24 Miscellaneous Medication SC 0.1 mls QAM ANAND Administration Potassium Chloride/Sodium Chloride 1,000 mls @ 50 mls/hr 03/09/19 08:37 03/09 09:08 Ns 0.9% W/ 40 Meq Kcl IV 1,000 mls .Q20H ANAND Administration Cefepime HCl 2 gm/ Sodium 100 mls @ 200 mls/hr 03/09/19 09:00 03/09/19 09:23 Chloride IVPB 100 mls Q12HR ANAND Administration Insulin Human Lispro 0 units 03/07/19 09:26 03/09/19 12:30 Humalog SC 3 units .AGGRESSIVE SLIDING PRN Administration AGGRESSIVE SLIDING SCALE Protocol - Exam General Appearance: NAD, awake alert General - other findings: slightly drowsy ENT: normocephalic atraumatic, no oropharyngeal lesions Neck: supple, symmetric, no JVD, no thyromegaly Heart: RRR, no murmur, no gallops, no rubs Respiratory: no rales, no ronchi Respiratory - other findings: slightly diminished breath sounds at the bases Gastrointestinal: soft, non-tender, non-distended, normal bowel sounds Extremities: no cyanosis, no clubbing, no edema Hosp A/P - Plan Chest X ray 03/06: bibasilar opacities suspicious for pneumonia This is 48 year old female who presented with shortness of breath, cough, fever , confusion, unresponsiveness, admitted for DKA, s/p intubation #Acute hypoxic respiratory failure secondary to pneumonia s/p intubation #Severe sepsis secondary to pneumonia #Lactic acidosis - temp 101, heart rate 90, lactate 4.9, s/p 2L fluid boluses, with fluctuating MAP. Required levofed - blood culture negative, respiratory culture growing staph aureus. Flu negative - on IV linezolid, meropenem and azithromycin however WBC went up to 24 today, so switched meropenem to cefepime per pulmonray - lactic acidosis resolved #DKA - resolved - on lantus 10 units SC qam #Hypokalemia - resolved - continue electrolyte replacement. Repeat BMP in evening #Anemia - hemoglobin 11 - check B12/folate in am Diet: NPO DVT prophylaxis: lovenox Code status: full code
[2019-03-09] MEDS: K-Phos Neutral 250 MG TAB PO SCH (17:17)
--- NOTE | 2019-03-09 18:38 | CON ---
DATE OF CONSULTATION: 03/09/2019 REASON FOR CONSULTATION: Elevated troponin. HISTORY OF PRESENT ILLNESS: Ms. Barnard is a 48-year-old woman, who recently presented with pneumonia. She has no previous history of underlying coronary artery disease. She has no history of chest pain, pressure, dizziness, lightheadedness, or syncope. She does have shortness of breath and was diagnosed with pneumonia per Dr. Ean Leon. Her peak troponin was 0.5. Recent echo suggested LVEF of 55% to 60% with mild MR. PAST MEDICAL HISTORY: None. PAST SURGICAL HISTORY: Cholecystectomy. ALLERGIES: NONE. MEDICATIONS: None. REVIEW OF SYSTEMS: A 10-point review of systems is reviewed and as above, otherwise negative. PHYSICAL EXAMINATION: GENERAL: The patient is a pleasant 48-year-old who is in no acute distress. The patient appears their stated age. VITAL SIGNS: Blood pressure 141/79, pulse 81, temperature afebrile. NEUROLOGIC: The patient is alert and oriented x3 with no focal neurologic deficits. HEENT: Sclerae without icterus. Mouth has moist mucous membranes with normal pallor. NECK: No JVD. Carotid upstroke brisk. No bruits bilaterally. LUNGS: Clear to auscultation with unlabored respirations. BACK: No scoliosis or kyphosis. CARDIAC: Regular rate and rhythm with normal S1 and S2. No S3 or S4 noted. No significant rubs, murmurs, thrills, or gallops noted throughout the precordium. PMI is not displaced. There is no parasternal heave. ABDOMEN: Soft, nontender, nondistended. No peritoneal signs present. No hepatosplenomegaly. No abnormal striae. EXTREMITIES: 2+ femoral and 2+ dorsalis pedis pulses. No cyanosis, clubbing, or edema. SKIN: No gross abnormalities. PERTINENT LABORATORY DATA: Hemoglobin 11.5. Creatinine 0.4, potassium 3.5. Peak troponin 0.7. IMPRESSION: 1. Pneumonia. 2. Elevated troponin. RECOMMENDATIONS: Increased troponin likely secondary to type 2 VA from recent pneumonia. Conservative therapy recommended. Would add low-dose beta-jose guadalupe therapy in addition to aspirin and statin. Given normal LVEF, continue current course. Otherwise, I have no further recommendations. Any further CV changes occur, please do not hesitate to re-consult. Job ID: [id number]
[2019-03-09] MEDS: Guaifenesin DM 100-10/5 ML UDCUP PO PRN (23:35)
[2019-03-10] MEDS: HumaLOG 300 UNITS/3 ML VIAL SC PRN ×2 (00:12→14:11)
[2019-03-10] MEDS: Guaifenesin DM 100-10/5 ML UDCUP PO PRN ×3 (04:23→18:43)
[2019-03-10] MEDS: NS 0.9% w/ 40 MEQ KCL 1,000 ML IV SCH (04:27)
[2019-03-10 05:10] LABS: Anion Gap 11 mmol/L (10-20); BUN (Urea Nitrogen) 6 mg/dL (7.0-18.7); Calc. Creatinine Clearance 139 mL/min (70-130); Calcium 7.7 mg/dL (7.8-10.44); Carbon Dioxide 26 mmol/L (22-29); Chloride 106 mmol/L (98-107); Estimated GFR-MDRD Greater than 90; Glucose 95 mg/dL (70-105); Potassium 3.3 mmol/L (3.5-5.1); Sodium 140 mmol/L (136-145)
[2019-03-10 05:16] LABS: Phosphorus 1.9 mg/dL (2.3-4.7)
[2019-03-10 05:43] LABS: Band 15 % (5-11); Eosinophils 2 % (0-10); Hemoglobin 11.1 g/dL (12.0-16.0); Lymphocytes 11 % (21-51); MDiff Complete? YES; Mean Corpuscular HGB CONC 34.8 g/dL (32.0-36.0); Mean Corpuscular Volume 86.2 fL (78.0-98.0); Mean Platelet Volume 8.9 fL (7.4-10.4); Metamyelocyte 1 % (0-0); Monocytes 7 % (0-10); Neutrophil 64 % (42-75); Nucleated RBC 1 % (0); Platelet Count 336 thou/uL (130-400); Platelet Morphology Comment Appears Adequate; RBC Distribution Width 13.1 % (11.5-14.5); RBC Morphology Normal; Target Cells SLIGHT = 2-5 cells (100X) (0-1/hpf); White Blood Cell (WBC) Count 16.1 thou/uL (4.8-10.8)
[2019-03-10] MEDS: K-Phos Neutral 250 MG TAB PO SCH ×2 (08:00→09:53)
--- NOTE | 2019-03-10 08:03 | RAD ---
EXAM: Single view of the chest HISTORY: Ventilated patient with respiratory failure COMPARISON: 03/09/2019 FINDINGS: Single view of the chest shows a normal sized cardiomediastinal silhouette. There is a subt le area of airspace opacity projecting over the inferior aspect of the right upper lobe. Opacities are also seen in the lung bases which may represent infiltrates or atelectasis. The bones are unremar kable. IMPRESSION: Stable exam
--- NOTE | 2019-03-10 08:25 | PRG ---
DATE OF SERVICE: 03/10/2019 SUBJECTIVE: Ms. Barnard speaks Maldivian only. She voices no complaints and has no questions for me this morning. She has been getting better. She is extubated a couple days ago and has had no setbacks. OBJECTIVE: VITAL SIGNS: Temperature 98.7, pulse 89, blood pressure 140/78, O2 saturation 98% on nasal cannula. HEENT: Unremarkable. NECK: No adenopathy or JVD. CHEST: Fairly clear anteriorly. CARDIAC: S1, S2, regular without murmur. ABDOMEN: Soft and nontender. EXTREMITIES: Demonstrate no clubbing, cyanosis, or edema. IMAGING: Her chest x-ray shows a persistent right upper lobe and left upper lobe infiltrate. This is unchanged. Her cultures are growing out Staphylococcus aureus, which is sensitive to the cefepime and the linezolid that she is on. ASSESSMENT: 1. Methicillin sensitive Staphylococcus aureus pneumonia. 2. Status post acute respiratory failure requiring mechanical ventilation. 3. Diabetes mellitus. PLAN: The patient can be transferred to the medical floor. She will continue antibiotics and increase physical activity as tolerated. Discontinue Ching catheter. Job ID: [id number]
[2019-03-10] MEDS: Enoxaparin Sodium 60 MG/0.6 ML SYRINGE SC SCH (09:44)
[2019-03-10] MEDS: Cefepime 2 GM in Sodium Chloride 0.9% 100 ML IVPB SCH ×2 (09:44→22:23)
[2019-03-10] MEDS: Famotidine 20 MG TAB PER TUBE SCH ×2 (09:44→22:24)
[2019-03-10] MEDS: Insulin Glargine 10 UNITS in Pre-Filled Syringe 1 EACH SC SCH (09:44)
[2019-03-10] MEDS: Aspirin 81 mg Enteric Coated Tablet PO SCH (09:44)
[2019-03-10] MEDS: Linezolid 600 MG in Premix Bag 1 BAG IVPB SCH ×2 (09:52→22:24)
[2019-03-10] MEDS ORDERED: Enoxaparin Sodium 40 MG/0.4 ML SYRINGE SC SCH (13:00)
[2019-03-10] MEDS: Acetaminophen 650 MG/20.3 ML UDCUP PO PRN (15:19)
--- NOTE | 2019-03-10 17:09 | PDOC.HOSPP ---
- Subjective Encounter Date: 03/10/19 Encounter Time: 17:08 Subjective: Ms. Barnard was seen today in follow-up of DKA. She says she is still coughing and notes some abdominal discomfort with the cough. - Objective Vital Signs & Weight: Vital Signs (12 hours) Temp Pulse Resp BP BP Pulse Ox 03/10/19 13:18 90 16 97 03/10/19 10:29 98.0 F 84 20 115/79 93 L 03/10/19 10:10 98.1 F 86 16 98/64 96 03/10/19 08:00 98.6 F 99 03/10/19 06:39 75 19 100 Weight Admit Weight 131 lb 6.4 oz Weight 136 lb 0.403 oz Most Recent Monitor Data Heart Rate from ECG 96 NIBP 140/80 NIBP BP-Mean 100 Respiration from ECG 16 SpO2 100 I&O: 03/09/19 03/10/19 03/11/19 06:59 06:59 06:59 Intake Total 4765.6 3637 393 Output Total 4005 2465 545 Balance 760.6 1172 -152 Result Diagrams: 03/10/19 03:50 03/10/19 03:50 Additional Labs: Accuchecks 03/10/19 03/10/19 03/10/19 16:20 13:22 03:57 POC Glucose 130 H 213 H 99 03/10/19 03/09/19 00:13 21:06 POC Glucose 206 H 119 H Hospitalist ROS - Medication Medications: Active Medications Generic Name Dose Route Start Last Admin Trade Name Freq PRN Reason Stop Dose Admin Acetaminophen 650 mg 03/07/19 19:01 03/10/19 15:19 Tylenol Elixir PO 650 mg Q4H PRN Administration Headache/Fever/Mild Pain (1-3) Albuterol/Ipratropium 3 ml 03/07/19 13:00 03/10/19 13:18 Duoneb NEB 3 ml [id number] ANAND Administration Aspirin 81 mg 03/10/19 09:00 03/10/19 09:44 Ecotrin PO 81 mg DAILY ANAND Administration Famotidine 20 mg 03/09/19 09:00 03/10/19 09:44 Pepcid PER TUBE 20 mg BID ANAND Administration Guaifenesin/Dextromethorphan 15 ml 03/09/19 23:24 03/10/19 13:19 Robitussin Dm PO 15 ml Q4H PRN Administration Cough Linezolid 600 mg/ Device 300 mls @ 150 mls/hr 03/07/19 09:00 03/10/19 09:52 IVPB 300 mls Q12HR ANAND Administration Insulin Glargine 10 units/ 0.1 mls @ 0 mls/hr 03/07/19 09:00 03/10/19 09:44 Miscellaneous Medication SC 0.1 mls QAM ANAND Administration Cefepime HCl 2 gm/ Sodium 100 mls @ 200 mls/hr 03/09/19 09:00 03/10/19 09:44 Chloride IVPB 100 mls Q12HR ANAND Administration Insulin Human Lispro 0 units 03/07/19 09:26 03/10/19 14:11 Humalog SC 6 units .AGGRESSIVE SLIDING PRN Administration AGGRESSIVE SLIDING SCALE Protocol Metoprolol Succinate 25 mg 03/10/19 09:00 03/10/19 09:46 Toprol Xl PO 25 mg DAILY ANAND Administration - Exam Eye: PERRL Heart: RRR, no murmur, no gallops, no rubs, normal peripheral pulses Respiratory: normal chest expansion, no tachypnea, rales (bilateral wheezing and rhonchi), rhonchi Gastrointestinal: soft, non-tender, non-distended, normal bowel sounds, no palpable masses, no hepatomegaly Extremities: no cyanosis, no clubbing, no edema Hosp A/P (1) Pneumonia, community acquired Code(s): J18.9 - PNEUMONIA, UNSPECIFIED ORGANISM Status: Acute (2) Acute respiratory failure with hypoxia Code(s): J96.01 - ACUTE RESPIRATORY FAILURE WITH HYPOXIA Status: Acute (3) DKA (diabetic ketoacidoses) Code(s): E11.10 - TYPE 2 DIABETES MELLITUS WITH KETOACIDOSIS WITHOUT COMA Status: Resolved (4) New onset type 2 diabetes mellitus Code(s): E11.9 - TYPE 2 DIABETES MELLITUS WITHOUT COMPLICATIONS Status: Acute - Plan * DKA- resolved * Pneumonia- continue IV antibiotics, and incentive spirometry * DM- will transitioon her to Metformin along with a SSI * NSTEMI type 2 ( demand ischemia from pneumonia)- medical management * Mobilize
[2019-03-11 05:36] LABS: #Basophils 0.1 thou/uL (0.0-0.2); #Eosinphils 0.1 thou/uL (0.0-0.7); #Lymphocytes 1.6 thou/uL (1.20-3.40); #Monocytes 0.4 thou/uL (0.11-0.59); #Neutrophils 9.6 thou/uL (1.40-6.50); %Basophils 0.7 % (0.0-1.0); %Eosinophils 0.6 % (0.0-10.0); %Neutrophils 81.8 % (42.0-75.0); Hemoglobin 11.6 g/dL (12.0-16.0); Mean Corpuscular HGB CONC 33.2 g/dL (32.0-36.0); Mean Corpuscular Hemoglobin 28.9 pg (27.0-31.0); Mean Platelet Volume 7.9 fL (7.4-10.4); Platelet Count 404 thou/uL (130-400); RBC Distribution Width 13.3 % (11.5-14.5); Red Blood Cell (RBC) Count 4.03 mill/uL (4.20-5.40); White Blood Cell (WBC) Count 11.7 thou/uL (4.8-10.8)
[2019-03-11 05:42] LABS: Hemoglobin A1c 11.9 % (4.0-6.0)
[2019-03-11 06:02] LABS: Anion Gap 12 mmol/L (10-20); BUN (Urea Nitrogen) 5 mg/dL (7.0-18.7); Calc. Creatinine Clearance 129 mL/min (70-130); Calcium 8.4 mg/dL (7.8-10.44); Carbon Dioxide 26 mmol/L (22-29); Chloride 107 mmol/L (98-107); Estimated GFR-MDRD Greater than 90; Glucose 142 mg/dL (70-105); Potassium 3.6 mmol/L (3.5-5.1); Sodium 141 mmol/L (136-145)
[2019-03-11] MEDS: Acetaminophen 650 MG/20.3 ML UDCUP PO PRN ×3 (08:30→16:36)
[2019-03-11] MEDS: Guaifenesin DM 100-10/5 ML UDCUP PO PRN ×3 (08:31→16:36)
[2019-03-11] MEDS: Enoxaparin Sodium 40 MG/0.4 ML SYRINGE SC SCH (08:32)
[2019-03-11] MEDS: metFORMIN 850 MG TAB PO SCH ×2 (08:34→16:35)
[2019-03-11] MEDS: Aspirin 81 mg Enteric Coated Tablet PO SCH (08:34)
[2019-03-11] MEDS: Famotidine 20 MG TAB PER TUBE SCH ×2 (08:34→20:43)
[2019-03-11] MEDS: Cefepime 2 GM in Sodium Chloride 0.9% 100 ML IVPB SCH ×2 (08:35→20:43)
[2019-03-11] MEDS: Linezolid 600 MG in Premix Bag 1 BAG IVPB SCH ×2 (09:25→20:43)
[2019-03-11] MEDS: HumaLOG 300 UNITS/3 ML VIAL SC PRN (11:36)
--- NOTE | 2019-03-11 13:46 | PDOC.HOSPP ---
- Subjective Encounter Date: 03/11/19 Encounter Time: 13:44 Subjective: Ms. Barnard was seen today in follow-up of pneumonia and new onset diabetes. She was cough a lot last night with phlem, but it has been better today. - Objective Vital Signs & Weight: Vital Signs (12 hours) Temp Pulse Resp BP Pulse Ox 03/11/19 12:09 90 16 03/11/19 10:52 98.4 F 80 14 97/65 94 L 03/11/19 07:55 98.4 F 95 18 115/70 92 L 03/11/19 07:16 92 16 93 L 03/11/19 04:16 98.2 F 93 16 101/67 92 L Weight Admit Weight 131 lb 6.4 oz Weight 130 lb 2.998 oz Most Recent Monitor Data Heart Rate from ECG 96 NIBP 140/80 NIBP BP-Mean 100 Respiration from ECG 16 SpO2 100 I&O: 03/10/19 03/11/19 03/12/19 06:59 06:59 06:59 Intake Total 3637 2723 Output Total 2465 545 Balance 1172 2178 Result Diagrams: 03/11/19 05:19 03/11/19 05:19 Additional Labs: Accuchecks 03/11/19 03/11/19 03/10/19 10:52 05:42 20:40 POC Glucose 225 H 134 H 99 03/10/19 16:20 POC Glucose 130 H Hospitalist ROS - Medication Medications: Active Medications Generic Name Dose Route Start Last Admin Trade Name Freq PRN Reason Stop Dose Admin Acetaminophen 650 mg 03/07/19 19:01 03/11/19 12:50 Tylenol Elixir PO 650 mg Q4H PRN Administration Headache/Fever/Mild Pain (1-3) Albuterol/Ipratropium 3 ml 03/07/19 13:00 03/11/19 12:09 Duoneb NEB 3 ml [id number] ANAND Administration Aspirin 81 mg 03/10/19 09:00 03/11/19 08:34 Ecotrin PO 81 mg DAILY ANAND Administration Enoxaparin Sodium 40 mg 03/11/19 09:00 03/11/19 08:32 Lovenox SC 40 mg 0900 ANAND Administration Famotidine 20 mg 03/09/19 09:00 03/11/19 08:34 Pepcid PER TUBE 20 mg BID ANAND Administration Guaifenesin/Dextromethorphan 15 ml 03/09/19 23:24 03/11/19 12:50 Robitussin Dm PO 15 ml Q4H PRN Administration Cough Linezolid 600 mg/ Device 300 mls @ 150 mls/hr 03/07/19 09:00 03/11/19 09:25 IVPB 300 mls Q12HR ANAND Administration Cefepime HCl 2 gm/ Sodium 100 mls @ 200 mls/hr 03/09/19 09:00 03/11/19 08:35 Chloride IVPB 100 mls Q12HR ANAND Administration Insulin Human Lispro 0 units 03/07/19 09:26 03/11/19 11:36 Humalog SC 6 units .AGGRESSIVE SLIDING PRN Administration AGGRESSIVE SLIDING SCALE Protocol Metformin HCl 850 mg 03/11/19 08:00 03/11/19 08:34 Glucophage PO 850 mg BID-WM ANAND Administration Metoprolol Succinate 25 mg 03/10/19 09:00 03/11/19 08:43 Toprol Xl PO 25 mg DAILY ANAND Administration - Exam Eye: PERRL, anicteric sclera Heart: RRR, no murmur, no gallops, no rubs, normal peripheral pulses Respiratory: rales, wheezes Gastrointestinal: soft, non-tender, non-distended, normal bowel sounds, no palpable masses, no hepatomegaly Extremities: no cyanosis, no clubbing, no edema Hosp A/P (1) Pneumonia, community acquired Code(s): J18.9 - PNEUMONIA, UNSPECIFIED ORGANISM Status: Acute (2) Acute respiratory failure with hypoxia Code(s): J96.01 - ACUTE RESPIRATORY FAILURE WITH HYPOXIA Status: Acute (3) DKA (diabetic ketoacidoses) Code(s): E11.10 - TYPE 2 DIABETES MELLITUS WITH KETOACIDOSIS WITHOUT COMA Status: Resolved (4) New onset type 2 diabetes mellitus Code(s): E11.9 - TYPE 2 DIABETES MELLITUS WITHOUT COMPLICATIONS Status: Acute - Plan * Pneumonia- continue IV antibiotics, and incentive spirometry- she is slowly improving * DM- blood glucose has been stable on Metformin * NSTEMI type 2 ( demand ischemia from pneumonia)- medical management * Continue to ambulate as tolerated * Hopefully home soon
--- NOTE | 2019-03-11 15:22 | PRG ---
DATE OF SERVICE: 03/11/2019 SUBJECTIVE: The patient is doing well, has no acute complaints. OBJECTIVE: VITAL SIGNS: Temperature 98.4, pulse 90, respirations 16, O2 saturation 94% on room air, blood pressure 97/65. HEENT: Unremarkable. NECK: No adenopathy or JVD. LUNGS: Clear anteriorly. CARDIAC: S1, S2 regular. ABDOMEN: Soft. EXTREMITIES: No edema. LABORATORY DATA: White blood cell count 11.7, hematocrit 35, and platelet count 404. Sodium 141, potassium 3.6, BUN 5, creatinine 0.5, glucose 142. ASSESSMENT: The patient is doing extremely well post intubation for staphylococcal pneumonia. PLAN: It would be reasonable to switch her over to oral cephalosporins and treat for a couple of weeks at time of discharge. Hopefully, she can go home tomorrow. Job ID: [id number]
[2019-03-12 08:01] LABS: #Eosinphils 0.1 thou/uL (0.0-0.7); #Monocytes 0.5 thou/uL (0.11-0.59); #Neutrophils 12.2 thou/uL (1.40-6.50); %Basophils 0.3 % (0.0-1.0); %Eosinophils 0.4 % (0.0-10.0); %Lymphocytes 13.7 % (21.0-51.0); %Monocytes 3.4 % (0.0-10.0); %Neutrophils 82.3 % (42.0-75.0); Hemoglobin 12.3 g/dL (12.0-16.0); Mean Corpuscular HGB CONC 32.7 g/dL (32.0-36.0); Mean Corpuscular Hemoglobin 28.7 pg (27.0-31.0); Mean Corpuscular Volume 87.6 fL (78.0-98.0); Mean Platelet Volume 7.4 fL (7.4-10.4); Platelet Count 498 thou/uL (130-400); RBC Distribution Width 13.5 % (11.5-14.5); Red Blood Cell (RBC) Count 4.27 mill/uL (4.20-5.40); White Blood Cell (WBC) Count 14.8 thou/uL (4.8-10.8)
[2019-03-12 08:21] LABS: Anion Gap 12 mmol/L (10-20); BUN (Urea Nitrogen) 6 mg/dL (7.0-18.7); Calc. Creatinine Clearance 111 mL/min (70-130); Calcium 8.7 mg/dL (7.8-10.44); Carbon Dioxide 25 mmol/L (22-29); Chloride 106 mmol/L (98-107); Estimated GFR-MDRD Greater than 90; Glucose 100 mg/dL (70-105); Potassium 3.7 mmol/L (3.5-5.1); Sodium 139 mmol/L (136-145)
[2019-03-12] MEDS: Enoxaparin Sodium 40 MG/0.4 ML SYRINGE SC SCH (08:30)
[2019-03-12] MEDS: Famotidine 20 MG TAB PER TUBE SCH ×2 (08:30→21:16)
[2019-03-12] MEDS: Aspirin 81 mg Enteric Coated Tablet PO SCH (08:30)
[2019-03-12] MEDS: metFORMIN 850 MG TAB PO SCH ×2 (08:31→16:59)
[2019-03-12] MEDS: Cefepime 2 GM in Sodium Chloride 0.9% 100 ML IVPB SCH (08:31)
[2019-03-12] MEDS ORDERED: Prevnar 13-Val Conj/PF 0.5 ML SYRINGE IM ONE (09:00)
[2019-03-12] MEDS ORDERED: FLU VACC QS2019-20(6MOS UP)/PF 60 MCG/0.5 ML SYRINGE IM ONE (09:00)
--- NOTE | 2019-03-12 09:25 | PRG ---
DATE OF SERVICE: 03/12/2019 SUBJECTIVE: This morning, the patient is better, less short of breath, less cough. OBJECTIVE: VITAL SIGNS: Temperature 97 on room air, blood pressure 102/71. GENERAL: She is weak. CHEST: Decreased breath sounds. No wheezing or crackles. CARDIAC: Normal S1 and S2. No gallops. LABORATORY DATA: Lytes are normal. Glucose is greater than 90. White count 14,000. IMPRESSION: 1. Staph pneumonia, status post viral syndrome, bilateral. 2. Respiratory failure. 3. Uncontrolled diabetes. PLAN: Switch over to oral antibiotics. PT, supportive care. Baseline chest x-ray. Disposition home in the next few days. Job ID: [id number]
[2019-03-12] MEDS: Linezolid 600 MG in Premix Bag 1 BAG IVPB SCH (09:50)
--- NOTE | 2019-03-12 10:29 | RAD ---
EXAM: PA and lateral chest: INDICATIONS: Pneumonia COMPARISON: 03/10/2019 FINDINGS: Bilateral infiltrates again noted. Patchy infiltrate in the right upper lobe and right lowe r lobe. Confluent infiltrate in the left lower lobe. Infiltrates appear mildly improved when compared to portable film of 03/10/2019. IMPRESSION: Persistent bilateral infiltrates. Evidence of improvement when compared to prior study.
[2019-03-12 12:23] VITALS: BMI 25.5
--- NOTE | 2019-03-12 15:49 | PDOC.HOSPP ---
- Subjective Encounter Date: 03/12/19 Encounter Time: 15:45 Subjective: Ms. Barnard was seen today in follow-up pneumonia and new onset DM. She does not have any new complaints. She says she is feeling better. - Objective Vital Signs & Weight: Vital Signs (12 hours) Temp Pulse Resp BP Pulse Ox 03/12/19 13:48 72 16 97 03/12/19 11:26 98.5 F 91 20 100/67 94 L 03/12/19 08:30 97.9 F 100 18 102/71 93 L 03/12/19 08:00 93 L 03/12/19 07:17 97 03/12/19 07:15 84 16 97 03/12/19 04:11 97.5 F L 91 16 100/63 94 L Weight Admit Weight 131 lb 6.4 oz Weight 126 lb 6.4 oz Most Recent Monitor Data Heart Rate from ECG 96 NIBP 140/80 NIBP BP-Mean 100 Respiration from ECG 16 SpO2 100 I&O: 03/11/19 03/12/19 03/13/19 06:59 06:59 06:59 Intake Total 2723 1760 Output Total 545 Balance 2178 1760 Result Diagrams: 03/12/19 07:54 03/12/19 07:54 Additional Labs: Accuchecks 03/12/19 03/12/19 03/11/19 11:27 05:45 20:14 POC Glucose 141 H 97 148 H 03/11/19 03/10/19 16:25 08:31 POC Glucose 76 121 H Hospitalist ROS - Medication Medications: Active Medications Generic Name Dose Route Start Last Admin Trade Name Bladimirq PRN Reason Stop Dose Admin Acetaminophen 650 mg 03/07/19 19:01 03/11/19 16:36 Tylenol Elixir PO 650 mg Q4H PRN Administration Headache/Fever/Mild Pain (1-3) Albuterol/Ipratropium 3 ml 03/07/19 13:00 03/12/19 13:48 Duoneb NEB 3 ml [id number] ANAND Administration Aspirin 81 mg 03/10/19 09:00 03/12/19 08:30 Ecotrin PO 81 mg DAILY ANAND Administration Enoxaparin Sodium 40 mg 03/11/19 09:00 03/12/19 08:30 Lovenox SC 40 mg 0900 ANAND Administration Famotidine 20 mg 03/09/19 09:00 03/12/19 08:30 Pepcid PER TUBE 20 mg BID ANAND Administration Guaifenesin/Dextromethorphan 15 ml 03/09/19 23:24 03/11/19 16:36 Robitussin Dm PO 15 ml Q4H PRN Administration Cough Insulin Human Lispro 0 units 03/07/19 09:26 03/11/19 11:36 Humalog SC 6 units .AGGRESSIVE SLIDING PRN Administration AGGRESSIVE SLIDING SCALE Protocol Metformin HCl 850 mg 03/11/19 08:00 03/12/19 08:31 Glucophage PO 850 mg BID-WM ANAND Administration Metoprolol Succinate 25 mg 03/10/19 09:00 03/12/19 08:30 Toprol Xl PO 25 mg DAILY ANAND Administration - Exam Eye: PERRL Heart: RRR, no murmur, no gallops, no rubs, normal peripheral pulses Respiratory: no rales, no tachypnea, rhonchi Gastrointestinal: soft, non-tender, non-distended, normal bowel sounds, no palpable masses, no hepatomegaly Extremities: no cyanosis, no clubbing, no edema Hosp A/P (1) Pneumonia, community acquired Code(s): J18.9 - PNEUMONIA, UNSPECIFIED ORGANISM Status: Acute (2) Acute respiratory failure with hypoxia Code(s): J96.01 - ACUTE RESPIRATORY FAILURE WITH HYPOXIA Status: Acute (3) DKA (diabetic ketoacidoses) Code(s): E11.10 - TYPE 2 DIABETES MELLITUS WITH KETOACIDOSIS WITHOUT COMA Status: Resolved (4) New onset type 2 diabetes mellitus Code(s): E11.9 - TYPE 2 DIABETES MELLITUS WITHOUT COMPLICATIONS Status: Acute - Plan * Pneumonia- she continues to improve. IV antibiotics have been changed to oral * DM- blood glucose continues to be stable on Metformin * Continue to ambulate as tolerated * Hopefully home soon
[2019-03-12] MEDS: Doxycycline 100 MG CAP PO SCH (21:16)
[2019-03-13 05:38] LABS: #Eosinphils 0.1 thou/uL (0.0-0.7); #Lymphocytes 1.9 thou/uL (1.20-3.40); #Monocytes 0.7 thou/uL (0.11-0.59); #Neutrophils 7.5 thou/uL (1.40-6.50); %Basophils 0.1 % (0.0-1.0); %Eosinophils 0.7 % (0.0-10.0); %Lymphocytes 18.4 % (21.0-51.0); %Monocytes 7.2 % (0.0-10.0); %Neutrophils 73.6 % (42.0-75.0); Mean Corpuscular HGB CONC 33.5 g/dL (32.0-36.0); Mean Corpuscular Hemoglobin 29.3 pg (27.0-31.0); Mean Corpuscular Volume 87.3 fL (78.0-98.0); Mean Platelet Volume 7.1 fL (7.4-10.4); Platelet Count 499 thou/uL (130-400); RBC Distribution Width 13.2 % (11.5-14.5); Red Blood Cell (RBC) Count 3.77 mill/uL (4.20-5.40); White Blood Cell (WBC) Count 10.1 thou/uL (4.8-10.8)
[2019-03-13 06:02] LABS: Anion Gap 12 mmol/L (10-20); BUN (Urea Nitrogen) 8 mg/dL (7.0-18.7); Calc. Creatinine Clearance 107 mL/min (70-130); Calcium 8.3 mg/dL (7.8-10.44); Carbon Dioxide 24 mmol/L (22-29); Chloride 105 mmol/L (98-107); Estimated GFR-MDRD Greater than 90; Glucose 118 mg/dL (70-105); Potassium 3.3 mmol/L (3.5-5.1); Sodium 138 mmol/L (136-145)
[2019-03-13] MEDS: Doxycycline 100 MG CAP PO SCH (08:26)
[2019-03-13] MEDS: Famotidine 20 MG TAB PER TUBE SCH (08:26)
[2019-03-13] MEDS: Enoxaparin Sodium 40 MG/0.4 ML SYRINGE SC SCH (08:26)
[2019-03-13] MEDS: metFORMIN 850 MG TAB PO SCH (08:26)
[2019-03-13] MEDS: Aspirin 81 mg Enteric Coated Tablet PO SCH (08:26)
--- NOTE | 2019-03-13 10:37 | PRG ---
DATE OF SERVICE: 03/13/2019 SUBJECTIVE: A 48-year-old female. OBJECTIVE: VITAL SIGNS: Temperature 98, pulse 90, respirations 14, saturations 92% on room air, blood pressure 112/74. CHEST: No wheezing or crackles. HEART: Normal S1 and S2. No gallops. ABDOMEN: No masses. LABORATORY DATA: Blood sugar is 115. White count 10,000. Lytes are normal. X-ray shows improvement in the bilateral infiltrates. ASSESSMENT AND PLAN: 1. Staphylococcus pneumonia, status post viral syndrome. 2. Diabetes, much improved. 3. Pulmonary villa, she is stable enough to be discharged home any time. Follow up with the primary care physician. Job ID: [id number]
[2019-03-13] MEDS: HumaLOG 300 UNITS/3 ML VIAL SC PRN (11:19)
[2019-03-13 11:53] VITALS: BP 101/67; TEMP 98.2
--- NOTE | 2019-03-13 15:21 | PDOC.HOSPP ---
- Subjective Encounter Date: 03/13/19 Encounter Time: 15:18 Subjective: Ms. Barnard was seen today in follow-up of pneumonia. She says she feels fine. - Objective Vital Signs & Weight: Vital Signs (12 hours) Temp Pulse Resp BP Pulse Ox 03/13/19 11:40 98.2 F 100 18 101/67 91 L 03/13/19 08:00 92 L 03/13/19 07:54 98.0 F 98 14 112/74 92 L 03/13/19 06:28 86 16 92 L 03/13/19 04:00 98.3 F 94 18 103/67 94 L Weight Admit Weight 131 lb 6.4 oz Weight 124 lb 5 oz Most Recent Monitor Data Heart Rate from ECG 96 NIBP 140/80 NIBP BP-Mean 100 Respiration from ECG 16 SpO2 100 I&O: 03/12/19 03/13/19 03/14/19 06:59 06:59 06:59 Intake Total 1760 480 Balance 1760 480 Result Diagrams: 03/13/19 05:15 03/13/19 05:15 Additional Labs: Accuchecks 03/13/19 03/13/19 03/12/19 10:38 05:22 19:47 POC Glucose 175 H 115 H 147 H 03/12/19 16:05 POC Glucose 120 H Hospitalist ROS - Medication Medications: Active Medications Generic Name Dose Route Start Last Admin Trade Name Freq PRN Reason Stop Dose Admin Acetaminophen 650 mg 03/07/19 19:01 03/11/19 16:36 Tylenol Elixir PO 650 mg Q4H PRN Administration Headache/Fever/Mild Pain (1-3) Aspirin 81 mg 03/10/19 09:00 03/13/19 08:26 Ecotrin PO 81 mg DAILY ANAND Administration Doxycycline Hyclate 100 mg 03/12/19 21:00 03/13/19 08:26 Vibramycin PO 03/19/19 21:01 100 mg BID ANAND Administration Enoxaparin Sodium 40 mg 03/11/19 09:00 03/13/19 08:26 Lovenox SC 40 mg 0900 ANAND Administration Famotidine 20 mg 03/09/19 09:00 03/13/19 08:26 Pepcid PER TUBE 20 mg BID ANAND Administration Guaifenesin/Dextromethorphan 15 ml 03/09/19 23:24 03/11/19 16:36 Robitussin Dm PO 15 ml Q4H PRN Administration Cough Insulin Human Lispro 0 units 03/07/19 09:26 03/13/19 11:19 Humalog SC 3 units .AGGRESSIVE SLIDING PRN Administration AGGRESSIVE SLIDING SCALE Protocol Metformin HCl 850 mg 03/11/19 08:00 03/13/19 08:26 Glucophage PO 850 mg BID-WM ANAND Administration Metoprolol Succinate 25 mg 03/10/19 09:00 03/13/19 08:26 Toprol Xl PO 25 mg DAILY ANNAD Administration - Exam Eye: PERRL Heart: RRR, no murmur, no gallops Respiratory: CTAB, no wheezes, no rales, no ronchi Gastrointestinal: soft, non-tender, non-distended, normal bowel sounds, no palpable masses, no hepatomegaly Extremities: no edema Hosp A/P (1) Pneumonia, community acquired Code(s): J18.9 - PNEUMONIA, UNSPECIFIED ORGANISM Status: Acute (2) Acute respiratory failure with hypoxia Code(s): J96.01 - ACUTE RESPIRATORY FAILURE WITH HYPOXIA Status: Acute (3) DKA (diabetic ketoacidoses) Code(s): E11.10 - TYPE 2 DIABETES MELLITUS WITH KETOACIDOSIS WITHOUT COMA Status: Resolved (4) New onset type 2 diabetes mellitus Code(s): E11.9 - TYPE 2 DIABETES MELLITUS WITHOUT COMPLICATIONS Status: Acute - Plan * Pneumonia- she has improved dramatically * She can be discharged home on Doxycycline * Follow-up with at the [facility] in 1 week
--- NOTE | 2019-03-14 03:36 | DIS ---
DATE OF ADMISSION: 03/06/2019 DATE OF DISCHARGE: 03/13/2019 DISCHARGE DISPOSITION: Home. DISCHARGE DIAGNOSES: 1. Acute respiratory failure with hypoxemia. 2. Community-acquired pneumonia. 3. Diabetic ketoacidosis, resolved. 4. New-onset diabetes mellitus. 5. Non-ST elevation myocardial infarction type 2 due to pneumonia. DISCHARGE MEDICATIONS: Include: 1. Toprol-XL 25 mg p.o. daily. 2. Metformin 850 mg p.o. daily. 3. Doxycycline 100 mg p.o. twice daily. 4. Aspirin 81 mg daily. IMAGING DONE DURING THE HOSPITAL STAY: The patient had an echocardiogram in which the EF was estimated at 55% to 60%. There was some mild mitral regurgitation present. CODE STATUS: Full code. ALLERGIES: NO KNOWN DRUG ALLERGIES. HOSPITAL COURSE: Ms. Barnard is a very pleasant 48-year-old female who had no known past medical history. She was brought into the hospital due to complaints of weakness and fatigue. She was found to be in DKA and also was found to have a significant pneumonia with hypoxemia. She was admitted to the ICU and the diabetic ketoacidosis was corrected. She was also placed on broad-spectrum IV antibiotics for the pneumonia. She was seen by Pulmonology as well as Cardiology during her hospital stay. It was also noted that her troponins were elevated. This was likely the result of the pneumonia and a demand ischemia. She was placed on aspirin as well as metoprolol as a result of this. She was given information on diabetes mellitus and instructions in [place] and also instructed to follow up with her primary care physician in 1 week and was discharged home on medications for diabetes. Job ID: [id number]
--- NOTE | 2019-03-14 04:22 | PQF ---
[employer] KETURAH LANDAVERDE TONI MD [id number] CLINICAL DOCUMENTATION CLARIFICATION FORM: POST DISCHARGE Addendum to original discharge summary date: ____ Late entry note date: __ DATE: 03/14/19 ATTN:Aubrey Mojica Please exercise your independent, professional judgment in responding to the clarification form. Clinical indicators are provided on the bottom of this form for your review Can you please further clarify if Severe sepsis is ruled in or ruled out? [ X ] Ruled in diagnosis [X ] Continue to treat [ ] Resolved [ ] Ruled out diagnosis [ ] Cannot rule out diagnosis [ ] Other diagnosis [ ] Unable to determine In addition, please specify: Present on Admission (POA): [ X ] Yes [ ] No [ ] Unable to determine For continuity of documentation, please document condition throughout progress notes and discharge summary. Thank You. CLINICAL INDICATORS - SIGNS / SYMPTOMS / LABS Consult Dr. Leon-- Sepsis new onset Hospitalist PN 03/07 pg.6- Severe sepsis secondary to pneumonia Hospitalist PN 03/07 pg.6- Lactic acidosis PN 03/09- staph pneumonia DS pg.1- she was found to be in DKA and also was found to have a significant pneumonia RISK FACTORS acute hypoxic respiratory failure- H and P pg.1 Pneumonia- H and P pg.1 DKA- Hospitalist PN pg.6 Type 2 KS- DS pg.1 TREATMENTS IV antibiotics-MAR Intubation- ED provider Pulmonary Consult 03/07 Dr. Leon IV fluids- MAR Levophed- MAR Chest X ray 03/06 (This form is maintained as a part of the permanent medical record) 2014 [email or web address]. All Rights Reserved [email or web address]
== END 2019-03-13 16:22 | disposition home or self-care (01) | DRG 871 ==
LOC: ERS 16:57 → CCU 21:51 → SURG B 03-10 09:46
PROVIDERS: ADMIT Hospitalist; ATTEND Hospitalist
PROC: 5A1945Z Respiratory Ventilation, 24-96 Consecutive Hours (ICD-10-PCS; principal; 2019-03-06)
PROC: 0BH17EZ Insertion of Endotracheal Airway into Trachea, Via Natural or Artificial Opening (ICD-10-PCS; 2019-03-06)
PROC: 3E033XZ Introduction of Vasopressor into Peripheral Vein, Percutaneous Approach (ICD-10-PCS; 2019-03-06)
DX: A41.01 Sepsis due to Methicillin susceptible Staphylococcus aureus (principal); J15.211 Pneumonia due to Methicillin susceptible Staphylococcus aureus; J96.01 Acute respiratory failure with hypoxia; E11.10 Type 2 diabetes mellitus with ketoacidosis without coma; G93.41 Metabolic encephalopathy; I21.A1 Myocardial infarction type 2; R65.20 Severe sepsis without septic shock; E87.6 Hypokalemia; D64.9 Anemia, unspecified; E86.0 Dehydration; E83.52 Hypercalcemia; E83.39 Other disorders of phosphorus metabolism; Z90.49 Acquired absence of other specified parts of digestive tract
CPT/HCPCS: 31500; 36415; 36416; 51702; 71045; 71046; 80048; 80053; 81003; 81015; 82010; 82330; 82553; 82607; 82746; 82803; 82805; 83036; 83605; 83690; 83735; 84100; 84443; 84484; 85025; 85060; 87040; 87070; 87077; 87186; 87205; 87804; 93005; 93306; 94003; 94640; 94760; 96365; 96366; 96367; 96376; 99292; A4353; J0456; J0692; J0696; J1650; J1815; J2020; J2060; J2185; J2405; J2704; J3010; J3475; J3480; J3490; J7050; J7620; P9045; S0028